=== PATIENT | male | born 1950 | race Hispanic/Latino ===

== ENCOUNTER 2017-11-24 18:34 | Inpatient (IN) | payer OTHER ==
[~2017-11-24] VITALS: Ht 121.9 cm; Wt 63.0 kg
[2017-11-24] MEDS ORDERED: IPRATROPIUM/ALBUTEROL SULFATE 3 ML SOLUTION IH ONE (19:50)
[2017-11-24] MEDS ORDERED: DEXAMETHASONE SOD PHOSPHATE 10MG/ML 1ML VIAL ONE (19:58)
[2017-11-24] MEDS ORDERED: CEFTRIAXONE SODIUM 2 GM VIAL ONE (19:58)
[2017-11-24] MEDS ORDERED: SODIUM CHLORIDE 0.9% 1000ML 1,000 ML IV ONE ×2 (19:58→23:25)
[2017-11-24 20:07] LABS: BASOPHILS % (AUTO) 1.6 % (0.0-5.0); EOSINOPHILS % (AUTO) 14.2 % (0.0-8.0); HEMATOCRIT 36.4 % (42-54); LYMPHOCYTES % (AUTO) 20.9 % (21.0-51.0); MEAN CORPUSCULAR HEMOGLOBIN 28.6 pg (27.0-33.0); MEAN CORPUSCULAR HGB CONC 33.6 g/dL (32.0-36.0); MEAN CORPUSCULAR VOLUME 85.1 fL (79-99); MONOCYTES % (AUTO) 6.1 % (3.0-13.0); NEUTROPHILS % (AUTO) 57.2 % (40.0-77.0); RED BLOOD CELL COUNT(AUTO) 4.28 MIL/uL (4.50-6.20); RED CELL DISTRIBUTION WIDTH 16.6 % (11.0-15.5); WHITE BLOOD COUNT (AUTO) 14.6 K/uL (4.8-10.8)
[2017-11-24 20:09] LABS: PLATELET COUNT (AUTO) 729 K/uL (130-400)
[2017-11-24 20:22] LABS: POTASSIUM 4.6 mmol/L (3.5-5.1)
[2017-11-24 20:22] LABS: ABG HCO3 23.3 mmol/L (21.0-28.0); ABG PCO2 38 mmHg (35-48)
[2017-11-24 20:36] LABS: ALBUMIN 3.1 g/dL (3.5-5.0); BILIRUBIN,TOTAL 0.2 mg/dL (0.2-1.0); CREATINE KINASE MB 1.6 ng/mL (0.5-3.6); TOTAL PROTEIN, SERUM 7.1 g/dL (6.0-8.3)
[2017-11-24 20:48] LABS: PLATELET MORPHOLOGY COMMENT MARKED INCREASED
[2017-11-24] MEDS ORDERED: LEVOFLOXACIN 500 MG/D5W 100 ML 100 ML ONE (23:25)
[2017-11-25] MEDS ORDERED: HYDRALAZINE HCL 20 MG/ML VIAL IM PRN (00:45)
[2017-11-25] MEDS ORDERED: AZITHROMYCIN 500MG+NS 250ML 250 ML IV SCH (01:00)
[2017-11-25] MEDS: ALBUTEROL SULFATE 0.083% 2.5 MG/3 ML INH IH SCH ×4 (02:35→13:30)
[2017-11-25] MEDS ORDERED: SODIUM CHLORIDE 0.9% 1000ML 1,000 ML IV ONE (04:21)
[2017-11-25] MEDS ORDERED: METHYLPREDNISOLONE SOD SUCC 40MG/ML 1ML ONE (04:56)
[2017-11-25 05:25] LABS: BASOPHILS % (AUTO) 0.6 % (0.0-5.0); EOSINOPHILS % (AUTO) 0.3 % (0.0-8.0); HEMATOCRIT 34.5 % (42-54); LYMPHOCYTES % (AUTO) 11.7 % (21.0-51.0); MEAN CORPUSCULAR HEMOGLOBIN 29.2 pg (27.0-33.0); MEAN CORPUSCULAR VOLUME 85.7 fL (79-99); NEUTROPHILS % (AUTO) 86.4 % (40.0-77.0); PLATELET COUNT (AUTO) 634 K/uL (130-400); RED BLOOD CELL COUNT(AUTO) 4.03 MIL/uL (4.50-6.20); RED CELL DISTRIBUTION WIDTH 16.9 % (11.0-15.5); WHITE BLOOD COUNT (AUTO) 9.7 K/uL (4.8-10.8)
[2017-11-25 05:33] LABS: CREATININE 1.1 mg/dL (0.5-1.5); POTASSIUM 5.1 mmol/L (3.5-5.1)
[2017-11-25] MEDS: IPRATROPIUM 0.5 MG/2.5 ML INH IH SCH ×2 (06:23→13:30)
[2017-11-25 07:55] VITALS: BP 146/82
[2017-11-25] MEDS ORDERED: INSULIN HUMULIN R 100 UNIT/ML 3ML ONE (09:24)
[2017-11-25] MEDS ORDERED: ACETAMINOPHEN 325 MG TAB ONE (09:39)
[2017-11-25] MEDS ORDERED: GABA-533 PO (09:45)
[2017-11-25] MEDS ORDERED: VITA1CAP85 PO (09:45)
[2017-11-25] MEDS ORDERED: GLIP10TA9 PO (09:45)
[2017-11-25] MEDS ORDERED: OMEP20CA10 PO (09:45)
[2017-11-25] MEDS ORDERED: ASPI-1197 PO (09:45)
[2017-11-25] MEDS ORDERED: CETI10TA86 PO (09:45)
[2017-11-25] MEDS ORDERED: DONE10TA43 PO (09:45)
[2017-11-25] MEDS ORDERED: DOCU100C33 PO (09:45)
[2017-11-25] MEDS ORDERED: AMLO10TA2 PO (09:45)
[2017-11-25] MEDS ORDERED: ATOR10 PO (09:45)
[2017-11-25] MEDS ORDERED: INSU100V12 SQ (09:45)
[2017-11-25] MEDS ORDERED: FOLI1TAB15 PO (09:45)
[2017-11-25] MEDS ORDERED: CARB15DR87 OP (09:45)
[2017-11-25] MEDS ORDERED: FERR324T8 PO (09:45)
[2017-11-25] MEDS ORDERED: LEVO137T2 PO (09:45)
[2017-11-25] MEDS ORDERED: LOSA100T29 PO (09:45)
[2017-11-25] MEDS ORDERED: ALBU2.5V2 IH (09:45)
[2017-11-25] MEDS ORDERED: ACET-66 PO (09:45)
[2017-11-25] MEDS ORDERED: MECL12.585 PO (09:45)
[2017-11-25] MEDS ORDERED: ERGO500014 PO (09:45)
[2017-11-25] MEDS ORDERED: IBUP-2353 PO (09:45)
[2017-11-25] MEDS ORDERED: METO50TA18 PO (09:45)
[2017-11-25] MEDS ORDERED: TIOT4MIS5 IH (09:45)
[2017-11-25] MEDS ORDERED: GUAI400T79 PO (09:45)
[2017-11-25] MEDS ORDERED: METF10004 PO (09:45)
[2017-11-25] MEDS ORDERED: CEFTRIAXONE 1GM/D5W 50ML 50 ML IV SCH (10:00)
[2017-11-25] MEDS ORDERED: CEFTRIAXONE SODIUM 1 GM IVP SCH (10:30)
[2017-11-25] MEDS ORDERED: ENOXAPARIN SODIUM 40 MG/0.4 ML SYRINGE SQ ONE (12:32)
[2017-11-25 13:00] VITALS: BP 163/74
[2017-11-25 15:00] VITALS: BP 163/74
[2017-11-25] MEDS ORDERED: ACETAMINOPHEN 325 MG TAB PO PRN ×2 (15:45)
[2017-11-25] MEDS ORDERED: ONDANSETRON HCL MDV 20ML 2 MG/ML VIAL IVP PRN (15:45)
[2017-11-25] MEDS ORDERED: POTASSIUM CHLORIDE 10% ELIXIR 20 MEQ/15 ML UDCUP PO PRN (15:45)
[2017-11-25] MEDS ORDERED: LIDOCAINE HCL-MPF 1% 2ML VIAL IJ PRN (15:45)
[2017-11-25] MEDS ORDERED: DEXTROSE 50%-WATER 50 ML DISP.SYRIN IV PRN (15:45)
[2017-11-25] MEDS ORDERED: GLUCAGON 1MG KIT 1 MG ML IM PRN (15:45)
[2017-11-25] MEDS ORDERED: POTASSIUM CHLORIDE 20MEQ/100ML 100 ML IV PRN (15:45)
[2017-11-25] MEDS ORDERED: POTASSIUM CHLORIDE 20 MEQ ERTAB PO PRN (15:45)
[2017-11-25] MEDS: INSULIN R PO SSI SQ SCH ×2 (16:30→22:02)
[2017-11-25] MEDS: IPRATROPIUM/ALBUTEROL SULFATE 3 ML SOLUTION IH SCH ×2 (19:18→23:48)
[2017-11-25 19:45] VITALS: BP 152/77
[2017-11-25] MEDS: METHYLPREDNISOLONE SOD SUCC 40MG/ML 1ML IVP SCH (21:46)
[2017-11-25] MEDS: LEVOFLOXACIN 500 MG/D5W 100 ML 100 ML IV SCH (21:47)
[2017-11-25] MEDS: SODIUM CHLORIDE 0.9% 1000ML 1,000 ML IV SCH (21:47)
[2017-11-25] MEDS: GUAIFENESIN SUGAR-FREE 100 MG/5 ML UDCUP PO PRN (22:00)
[2017-11-26 00:25] VITALS: BP 170/70
[2017-11-26 05:00] VITALS: BP 150/73
[2017-11-26] MEDS: METHYLPREDNISOLONE SOD SUCC 40MG/ML 1ML IVP SCH ×3 (05:03→20:38)
[2017-11-26] MEDS: INSULIN R PO SSI SQ SCH ×4 (05:53→20:36)
[2017-11-26] MEDS: ALBUTEROL SULFATE 0.083% 2.5 MG/3 ML INH IH SCH ×5 (06:00→22:00)
[2017-11-26 06:03] LABS: HEMATOCRIT 32.4 % (42-54); MEAN CORPUSCULAR HEMOGLOBIN 28.4 pg (27.0-33.0); MEAN CORPUSCULAR HGB CONC 33.3 g/dL (32.0-36.0); MEAN CORPUSCULAR VOLUME 85.1 fL (79-99); PLATELET COUNT (AUTO) 674 K/uL (130-400); RED CELL DISTRIBUTION WIDTH 16.8 % (11.0-15.5)
[2017-11-26 06:16] LABS: CREATININE 1.1 mg/dL (0.5-1.5); POTASSIUM 4.4 mmol/L (3.5-5.1)
[2017-11-26] MEDS: IPRATROPIUM/ALBUTEROL SULFATE 3 ML SOLUTION IH SCH ×3 (06:35→19:10)
[2017-11-26 07:58] VITALS: BP 135/76
[2017-11-26 08:14] LABS: BAND NEUTROPHILS % (MANUAL) 1 % (0-2); LYMPHOCYTES % (MANUAL) 6 % (22-44); MONOCYTES % (MANUAL) 3 % (2-9); SEGMENTED NEUTROPHILS % 90 % (40-70)
[2017-11-26 08:19] LABS: MAN.DIFF COMMENT-IMPRESSION MANUAL DIFFERENTIAL; PLATELET MORPHOLOGY COMMENT MARKED INCREASED
[2017-11-26] MEDS ORDERED: INSULIN GLARGINE 100 UNITS/ML 10 ML VIAL SQ ONE (08:59)
[2017-11-26] MEDS ORDERED: INSULIN GLARGINE 100 UNITS/ML 10 ML VIAL SQ SCH (09:00)
[2017-11-26] MEDS: PANTOPRAZOLE 40 MG/VIAL IVP SCH (09:00)
[2017-11-26] MEDS: INSULIN GLARGINE 100 UNITS/ML 10 ML VIAL SQ SCH (09:08)
[2017-11-26] MEDS: ENOXAPARIN SODIUM 40 MG/0.4 ML SYRINGE SQ SCH (09:11)
[2017-11-26] MEDS: SODIUM CHLORIDE 0.9% 1000ML 1,000 ML IV SCH ×2 (09:15→20:36)
[2017-11-26] MEDS: GUAIFENESIN SUGAR-FREE 100 MG/5 ML UDCUP PO PRN ×2 (11:46→18:00)
[2017-11-26 12:00] VITALS: BP 167/78
[2017-11-26] MEDS ORDERED: INSULIN HUMULIN R 100 UNIT/ML 3ML SQ ONE (12:21)
[2017-11-26 16:00] VITALS: BP 147/81
[2017-11-26 19:00] VITALS: BP 145/70
[2017-11-26] MEDS: LEVOFLOXACIN 500 MG/D5W 100 ML 100 ML IV SCH (20:38)
[2017-11-27] VITALS: BP 139/71
[2017-11-27] MEDS: ALBUTEROL SULFATE 0.083% 2.5 MG/3 ML INH IH SCH (00:25)
[2017-11-27] MEDS: IPRATROPIUM/ALBUTEROL SULFATE 3 ML SOLUTION IH SCH ×2 (00:25→06:17)
[2017-11-27] MEDS: GUAIFENESIN SUGAR-FREE 100 MG/5 ML UDCUP PO PRN (01:50)
[2017-11-27 04:00] VITALS: BP 150/79
[2017-11-27] MEDS: METHYLPREDNISOLONE SOD SUCC 40MG/ML 1ML IVP SCH ×2 (04:49→12:17)
[2017-11-27 04:53] LABS: BASOPHILS % (AUTO) 0.1 % (0.0-5.0); HEMATOCRIT 29.4 % (42-54); LYMPHOCYTES % (AUTO) 8.4 % (21.0-51.0); MEAN CORPUSCULAR HGB CONC 35.1 g/dL (32.0-36.0); MEAN CORPUSCULAR VOLUME 85.5 fL (79-99); MONOCYTES % (AUTO) 4.4 % (3.0-13.0); NEUTROPHILS % (AUTO) 87.1 % (40.0-77.0); PLATELET COUNT (AUTO) 581 K/uL (130-400); RED BLOOD CELL COUNT(AUTO) 3.44 MIL/uL (4.50-6.20); WHITE BLOOD COUNT (AUTO) 11.6 K/uL (4.8-10.8)
[2017-11-27 05:23] LABS: CREATININE 1.2 mg/dL (0.5-1.5); POTASSIUM 4.7 mmol/L (3.5-5.1)
[2017-11-27] MEDS: INSULIN R PO SSI SQ SCH ×2 (06:39→12:18)
[2017-11-27 08:00] VITALS: BP 165/77
[2017-11-27] MEDS: ENOXAPARIN SODIUM 40 MG/0.4 ML SYRINGE SQ SCH (08:08)
[2017-11-27] MEDS: PANTOPRAZOLE 40 MG/VIAL IVP SCH (08:08)
[2017-11-27] MEDS: INSULIN GLARGINE 100 UNITS/ML 10 ML VIAL SQ SCH (08:10)
[2017-11-27 10:09] LABS: ABG BASE EXCESS -3.1 mmol/L (-2.0-3.0); ABG HCO3 19.7 mmol/L (21.0-28.0); ABG PCO2 30 mmHg (35-48)
[2017-11-27 10:13] LABS: ABG BASE EXCESS -1.3 mmol/L (-2.0-3.0); ABG HCO3 21.6 mmol/L (21.0-28.0); ABG OXYGEN SATURATION 98.8 % (95.0-99.0); ABG PCO2 31 mmHg (35-48)
[2017-11-27] MEDS: SODIUM CHLORIDE 0.9% 1000ML 1,000 ML IV SCH (10:15)
[2017-11-27 12:00] VITALS: BP 144/68
[2017-11-27] MEDS ORDERED: LEVO750T46 PO (12:56)
[2017-11-27] MEDS ORDERED: LEVO500T89 PO (13:09)
== END 2017-11-27 13:30 | disposition home or self-care (01) | DRG 193 ==
LOC: EDH 18:34 → EDHIP 23:02 → 4BH 11-25 14:24
PROVIDERS: ADMIT Internal Medicine Nephrology; ATTEND Internal Medicine Nephrology
DX: J18.1 Lobar pneumonia, unspecified organism (principal); J96.01 Acute respiratory failure with hypoxia; J44.1 Chronic obstructive pulmonary disease with (acute) exacerbation; J44.0 Chronic obstructive pulmonary disease with (acute) lower respiratory infection; E11.51 Type 2 diabetes mellitus with diabetic peripheral angiopathy without gangrene; E07.9 Disorder of thyroid, unspecified; F17.210 Nicotine dependence, cigarettes, uncomplicated; I10 Essential (primary) hypertension; I25.10 Atherosclerotic heart disease of native coronary artery without angina pectoris; Z89.612 Acquired absence of left leg above knee; Z82.49 Family history of ischemic heart disease and other diseases of the circulatory system; Z82.5 Family history of asthma and other chronic lower respiratory diseases; Z89.611 Acquired absence of right leg above knee; Z79.4 Long term (current) use of insulin; Z79.84 Long term (current) use of oral hypoglycemic drugs; Z88.8 Allergy status to other drugs, medicaments and biological substances
CPT/HCPCS: 36415; 36600; 71045; 71250; 80048; 80053; 82550; 82553; 82803; 82947; 82948; 83605; 83880; 84484; 85025; 87040; 87633; 87804; 93005; 94640; 94664; 99291; C9113; J0696; J1100; J1650; J1815; J1956; J2920; J7030; J7070

== ENCOUNTER 2017-12-27 10:28 | Inpatient (IN) | payer OTHER ==
[~2017-12-27] VITALS: Ht 99.1 cm; Wt 45.2 kg
[~2017-12-27 10:28] MED LIST: ACET-66 PO; ALBU2.5V2 IH; AMLO10TA2 PO; ASPI-1197 PO; ATOR10 PO; CARB15DR87 OP; CETI10TA86 PO; DOCU100C33 PO; DONE10TA43 PO; ERGO500014 PO; FERR324T8 PO; FOLI1TAB15 PO; GABA-533 PO; GLIP10TA9 PO; GUAI400T79 PO; IBUP-2353 PO; INSU100V12 SQ; LEVO137T2 PO; LEVO500T89 PO; LOSA100T29 PO; MECL12.585 PO; METF10004 PO; METO50TA18 PO; OMEP20CA10 PO; TIOT4MIS5 IH; VITA1CAP85 PO
[2017-12-27] MEDS ORDERED: IPRATROPIUM/ALBUTEROL SULFATE 3 ML SOLUTION IH ONE (11:12)
[2017-12-27] MEDS ORDERED: ACETAMINOPHEN 325 MG TAB ONE (11:12)
[2017-12-27 11:19] LABS: BASOPHILS % (AUTO) 1.1 % (0.0-5.0); EOSINOPHILS % (AUTO) 11.4 % (0.0-8.0); HEMATOCRIT 35.4 % (42-54); LYMPHOCYTES % (AUTO) 22.5 % (21.0-51.0); MEAN CORPUSCULAR HEMOGLOBIN 28.6 pg (27.0-33.0); MEAN CORPUSCULAR HGB CONC 34.1 g/dL (32.0-36.0); MEAN CORPUSCULAR VOLUME 83.9 fL (79-99); MONOCYTES % (AUTO) 4.6 % (3.0-13.0); NEUTROPHILS % (AUTO) 60.4 % (40.0-77.0); RED BLOOD CELL COUNT(AUTO) 4.22 MIL/uL (4.50-6.20); RED CELL DISTRIBUTION WIDTH 16.9 % (11.0-15.5); WHITE BLOOD COUNT (AUTO) 11.6 K/uL (4.8-10.8)
[2017-12-27 11:34] LABS: INR 0.99 (0.85-1.15); PARTIAL THROMBOPLASTIN TIME 39.7 SEC (26.3-35.5); PLATELET COUNT (AUTO) 713 K/uL (130-400); PROTHROMBIN TIME 10.4 SEC (9.6-11.6)
[2017-12-27 11:35] LABS: ABG BASE EXCESS 0.4 mmol/L (-2.0-3.0); ABG HCO3 24.5 mmol/L (21.0-28.0); ABG OXYGEN SATURATION 92.5 % (95.0-99.0); ABG PCO2 38 mmHg (35-48)
[2017-12-27 11:38] LABS: CREATININE 0.9 mg/dL (0.5-1.5); POTASSIUM 4.2 mmol/L (3.5-5.1)
[2017-12-27 11:43] LABS: ALBUMIN 2.9 g/dL (3.5-5.0); BILIRUBIN,TOTAL 0.2 mg/dL (0.2-1.0); TOTAL PROTEIN, SERUM 7.2 g/dL (6.0-8.3)
[2017-12-27] MEDS ORDERED: SODIUM CHLORIDE 0.9% 500ML 500 ML IV ONE (12:29)
[2017-12-27] MEDS ORDERED: ONDANSETRON HCL MDV 20ML 2 MG/ML VIAL IV PRN (14:00)
[2017-12-27] MEDS: METHYLPREDNISOLONE SOD SUCC 125MG/2ML VIAL IV SCH (14:00)
[2017-12-27] MEDS: LEVOFLOXACIN 500 MG/D5W 100 ML 100 ML IV SCH (14:00)
[2017-12-27] MEDS ORDERED: ACETAMINOPHEN 325 MG TAB PO PRN (14:00)
[2017-12-27] MEDS ORDERED: HYDRALAZINE HCL 20 MG/ML VIAL IV PRN (14:00)
[2017-12-27] MEDS ORDERED: LACTULOSE 20 GM/30 ML UDCUP PO PRN (14:00)
[2017-12-27] MEDS ORDERED: GUAIFENESIN-DM 200/20 MG 10 ML PO PRN (14:00)
[2017-12-27] MEDS ORDERED: MORPHINE SULFATE 4 MG/1ML SYG IV PRN (14:00)
[2017-12-27] MEDS ORDERED: LEVOFLOXACIN 500 MG/D5W 100 ML 100 ML ONE (16:01)
[2017-12-27] MEDS: INSULIN HUMULIN R 100 UNIT/ML 3ML SQ SCH ×2 (16:30→20:24)
[2017-12-27 19:20] VITALS: BP 161/93
[2017-12-27] MEDS: IPRATROPIUM/ALBUTEROL SULFATE 3 ML SOLUTION IH SCH ×2 (22:15→23:43)
[2017-12-27 22:23] LABS: CREATINE KINASE MB 1.5 ng/mL (0.5-3.6); TROPONIN I 0.09 ng/mL (0.00-0.06)
[2017-12-27 23:00] VITALS: BP 157/89
[2017-12-28 03:00] VITALS: BP 151/79
[2017-12-28] MEDS: METHYLPREDNISOLONE SOD SUCC 125MG/2ML VIAL IV SCH (03:12)
[2017-12-28 04:38] LABS: HEMATOCRIT 30.6 % (42-54); MEAN CORPUSCULAR HEMOGLOBIN 28.3 pg (27.0-33.0); MEAN CORPUSCULAR HGB CONC 34.2 g/dL (32.0-36.0); MEAN CORPUSCULAR VOLUME 82.9 fL (79-99); PLATELET COUNT (AUTO) 625 K/uL (130-400); RED BLOOD CELL COUNT(AUTO) 3.69 MIL/uL (4.50-6.20); RED CELL DISTRIBUTION WIDTH 17.1 % (11.0-15.5); WHITE BLOOD COUNT (AUTO) 17.7 K/uL (4.8-10.8)
[2017-12-28 05:03] LABS: CREATINE KINASE MB 1.2 ng/mL (0.5-3.6); CREATININE 0.8 mg/dL (0.5-1.5); MAGNESIUM 1.1 mg/dL (1.80-2.40); POTASSIUM 3.8 mmol/L (3.5-5.1); TROPONIN I 0.11 ng/mL (0.00-0.06)
[2017-12-28] MEDS: INSULIN HUMULIN R 100 UNIT/ML 3ML SQ SCH ×4 (05:32→20:56)
[2017-12-28] MEDS: IPRATROPIUM/ALBUTEROL SULFATE 3 ML SOLUTION IH SCH ×4 (06:37→23:56)
[2017-12-28 07:58] VITALS: BP 145/82
[2017-12-28] MEDS: PANTOPRAZOLE SODIUM 40 MG TABLET.DR PO SCH (09:55)
[2017-12-28] MEDS: ENOXAPARIN SODIUM 40 MG/0.4 ML SYRINGE SQ SCH (09:56)
[2017-12-28] MEDS ORDERED: MAGNESIUM 2GM PREMIX 50ML 50 ML IV SCH (10:15)
[2017-12-28] MEDS ORDERED: IBUPROFEN 400 MG TABLET PO PRN (10:30)
[2017-12-28 11:39] VITALS: BP 131/69
[2017-12-28] MEDS: GABAPENTIN 100 MG CAPSULE PO SCH ×3 (12:36→20:18)
[2017-12-28] MEDS: ARTIFICAL TEARS SOL 15 ML OP SCH ×3 (12:36→20:58)
[2017-12-28] MEDS: FERROUS GLUCONATE 325 MG TABLET PO SCH ×2 (12:36→16:33)
[2017-12-28 16:00] VITALS: BP 134/65
[2017-12-28] MEDS: LEVOFLOXACIN 500 MG/D5W 100 ML 100 ML IV SCH (16:36)
[2017-12-28] MEDS: METFORMIN HCL 500 MG TABLET PO SCH (16:46)
[2017-12-28] MEDS ORDERED: METFORMIN HCL 500 MG TABLET PO SCH (17:00)
[2017-12-28 19:50] VITALS: BP 123/65
[2017-12-28] MEDS: METOPROLOL TARTRATE 50 MG TAB PO SCH (20:18)
[2017-12-28] MEDS: GLIPIZIDE 5 MG TABLET PO SCH (20:21)
[2017-12-28] MEDS ORDERED: ATORVASTATIN CALCIUM 20 MG TABLET PO SCH (21:00)
[2017-12-28 23:00] VITALS: BP 133/62
[2017-12-29 03:05] VITALS: BP 131/72
[2017-12-29 04:41] LABS: HEMATOCRIT 29.5 % (42-54); MEAN CORPUSCULAR HEMOGLOBIN 27.8 pg (27.0-33.0); MEAN CORPUSCULAR HGB CONC 33.4 g/dL (32.0-36.0); MEAN CORPUSCULAR VOLUME 83.3 fL (79-99); PLATELET COUNT (AUTO) 578 K/uL (130-400); RED BLOOD CELL COUNT(AUTO) 3.55 MIL/uL (4.50-6.20); RED CELL DISTRIBUTION WIDTH 16.6 % (11.0-15.5); WHITE BLOOD COUNT (AUTO) 14.7 K/uL (4.8-10.8)
[2017-12-29 04:52] LABS: CREATININE 1.8 mg/dL (0.5-1.5); MAGNESIUM 1.9 mg/dL (1.80-2.40); POTASSIUM 3.9 mmol/L (3.5-5.1)
[2017-12-29] MEDS: IPRATROPIUM/ALBUTEROL SULFATE 3 ML SOLUTION IH SCH ×2 (06:12→11:23)
[2017-12-29] MEDS: INSULIN HUMULIN R 100 UNIT/ML 3ML SQ SCH ×2 (06:18→11:30)
[2017-12-29 08:28] VITALS: BP 123/56
[2017-12-29] MEDS: GLIPIZIDE 5 MG TABLET PO SCH (08:55)
[2017-12-29] MEDS: GABAPENTIN 100 MG CAPSULE PO SCH ×2 (08:55→13:42)
[2017-12-29] MEDS: FERROUS GLUCONATE 325 MG TABLET PO SCH ×2 (08:56→13:42)
[2017-12-29] MEDS: METOPROLOL TARTRATE 50 MG TAB PO SCH (08:57)
[2017-12-29] MEDS: METFORMIN HCL 500 MG TABLET PO SCH (08:57)
[2017-12-29] MEDS: PANTOPRAZOLE SODIUM 40 MG TABLET.DR PO SCH (08:57)
[2017-12-29] MEDS: ENOXAPARIN SODIUM 40 MG/0.4 ML SYRINGE SQ SCH (08:58)
[2017-12-29] MEDS ORDERED: FOLIC ACID 1 MG TABLET PO SCH (09:00)
[2017-12-29] MEDS ORDERED: INSULIN GLARGINE 100 UNITS/ML 10 ML VIAL SQ SCH (09:00)
[2017-12-29] MEDS ORDERED: LEVOTHYROXINE 25 MCG TABLET PO SCH (09:00)
[2017-12-29] MEDS ORDERED: VITAMIN B COMPLEX 1 CAPSULE PO SCH (09:00)
[2017-12-29] MEDS ORDERED: ASPIRIN 81MG TAB.CHEW PO SCH (09:00)
[2017-12-29] MEDS ORDERED: LOSARTAN 50 MG TABLET PO SCH (09:00)
[2017-12-29] MEDS ORDERED: LEVOTHYROXINE 112 MCG TABLET PO SCH (09:00)
[2017-12-29] MEDS ORDERED: AMLODIPINE BESYLATE 5 MG TAB PO SCH (09:00)
[2017-12-29] MEDS ORDERED: DONEPEZIL HCL 5 MG TAB PO SCH (09:00)
[2017-12-29] MEDS: ARTIFICAL TEARS SOL 15 ML OP SCH ×2 (09:13→13:00)
[2017-12-29] MEDS ORDERED: SODIUM CHLORIDE 0.9% 1000ML 1,000 ML IV ONE (09:45)
[2017-12-29 11:55] VITALS: BP 134/61
[2017-12-29 13:30] LABS: CREATININE 1.5 mg/dL (0.5-1.5); POTASSIUM 3.8 mmol/L (3.5-5.1)
[2017-12-29] MEDS: LEVOFLOXACIN 500 MG/D5W 100 ML 100 ML IV SCH (13:42)
[2017-12-29] MEDS ORDERED: LEVO250T2 PO (14:37)
== END 2017-12-29 16:10 | disposition home or self-care (01) | DRG 191 ==
LOC: EDH 10:28 → EDHIP 13:47 → OBSVTOIN 13:47 → 3CH 18:29
PROVIDERS: ADMIT Internal Medicine Nephrology; ATTEND Internal Medicine Nephrology
DX: J44.1 Chronic obstructive pulmonary disease with (acute) exacerbation (principal); E44.1 Mild protein-calorie malnutrition; Z89.611 Acquired absence of right leg above knee; Z89.612 Acquired absence of left leg above knee; Z68.42 Body mass index [BMI] 45.0-49.9, adult; E11.9 Type 2 diabetes mellitus without complications; J44.0 Chronic obstructive pulmonary disease with (acute) lower respiratory infection; I10 Essential (primary) hypertension; F17.210 Nicotine dependence, cigarettes, uncomplicated; I25.10 Atherosclerotic heart disease of native coronary artery without angina pectoris; J20.9 Acute bronchitis, unspecified; Z82.49 Family history of ischemic heart disease and other diseases of the circulatory system; Z83.3 Family history of diabetes mellitus; Z88.8 Allergy status to other drugs, medicaments and biological substances
CPT/HCPCS: 36415; 36600; 71045; 80048; 80053; 82550; 82553; 82803; 82948; 83605; 83735; 83874; 84484; 85025; 85027; 85610; 85730; 87040; 87633; 87804; 93005; 94640; 94664; J1650; J1815; J1956; J2270; J2930; J3475; J7040

== ENCOUNTER 2020-08-25 16:19 | Inpatient (IN) | payer OTHER ==
[~2020-08-25] VITALS: Ht 152.4 cm; Wt 41.6 kg
[~2020-08-25 16:19] MED LIST changes: -ACET-66 PO; -ALBU2.5V2 IH; +ALBU8.5H8 IH; +AMLO-258 PO; -AMLO10TA2 PO; +ASPI1CPM6 PO; +BUDE10.2 IH; +GUAI100S13 PO; -GUAI400T79 PO; -IBUP-2353 PO; -INSU100V12 SQ; +IPRA3AMP24 IH; -LEVO500T89 PO; -LOSA100T29 PO; +LOSA100T58 PO; -MECL12.585 PO; +METF-446 PO; -METF10004 PO; +MULT1TAB61 PO; -OMEP20CA10 PO; +OMEP20CA12 PO; +POLY17PO29 PO; +[UNRECOGNIZED DRUG - CODE] NS
[2020-08-25 17:34] LABS: BASOPHILS % (AUTO) 0.3 % (0.0-5.0); EOSINOPHILS % (AUTO) 0.6 % (0.0-8.0); HEMATOCRIT 26.3 % (42-54); LYMPHOCYTES % (AUTO) 10.4 % (21.0-51.0); MEAN CORPUSCULAR HEMOGLOBIN 27.4 pg (27.0-33.0); MEAN CORPUSCULAR HGB CONC 31.9 g/dL (32.0-36.0); MEAN CORPUSCULAR VOLUME 85.7 fL (79-99); MONOCYTES % (AUTO) 3.7 % (3.0-13.0); NEUTROPHILS % (AUTO) 84.7 % (40.0-77.0); NUCLEATED RED BLOOD CELLS 0.2 % (0.0-0.19); RED BLOOD CELL COUNT(AUTO) 3.07 MIL/uL (4.50-6.20); WHITE BLOOD COUNT (AUTO) 12.2 K/uL (4.8-10.8)
[2020-08-25 17:36] LABS: PLATELET COUNT (AUTO) 739 K/uL (130-400)
[2020-08-25 17:42] LABS: INR 1.07 (0.85-1.15); PROTHROMBIN TIME 11.4 SEC (9.6-11.6)
[2020-08-25 17:43] LABS: ABG BASE EXCESS -7.1 mmol/L (-2.0-3.0); ABG HCO3 16.2 mmol/L (21.0-28.0); ABG OXYGEN SATURATION 86.1 % (95.0-99.0); ABG PCO2 28 mmHg (35-48)
[2020-08-25 17:44] LABS: PARTIAL THROMBOPLASTIN TIME 37.4 SEC (26.3-35.5)
[2020-08-25 17:50] LABS: APPEARANCE,URINE Cloudy (CLEAR); BILIRUBIN,URINE Negative (NEGATIVE); COLOR,URINE Yellow (YELLOW); GLUCOSE, URINE (UA) TRACE mg/dL (NEGATIVE); KETONES,URINE Negative (NEGATIVE); LEUKOCYTE ESTERASE ,URINE Trace (NEGATIVE); NITRATE,URINE Negative (NEGATIVE); OCCULT BLOOD,URINE Negative (NEGATIVE); PROTEIN,URINE 300 mg/dL (NEGATIVE)
[2020-08-25 17:53] LABS: PLATELET MORPHOLOGY COMMENT INCREASED
[2020-08-25 18:02] LABS: ALBUMIN 2.7 g/dL (3.5-5.0); BILIRUBIN,TOTAL 0.2 mg/dL (0.2-1.0); CREATININE 1.7 mg/dL (0.5-1.5); POTASSIUM 4.1 mmol/L (3.5-5.1); TOTAL PROTEIN, SERUM 7.4 g/dL (6.0-8.3); TROPONIN I 0.5 ng/mL (0.00-0.06)
[2020-08-25] MEDS ORDERED: FUROSEMIDE 10 MG/ML 4ML VIAL ONE ×3 (18:34→22:43)
[2020-08-25 18:39] LABS: BACTERIA,URINE Few /HPF (None Seen); RBC,URINE 0-1 /HPF (0-1); SQUAMOUS EPITHELIAL CELL,UR Few /HPF (0-2)
[2020-08-25] MEDS ORDERED: METHYLPREDNISOLONE SOD SUCC 125MG/2ML VIAL ONE (18:54)
[2020-08-25] MEDS ORDERED: IPRATROPIUM/ALBUTEROL SULFATE 3 ML SOLUTION IH ONE (19:13)
[2020-08-25] MEDS ORDERED: LEVOFLOXACIN 750 MG/D5W 150 ML 150 ML ONE (19:18)
[2020-08-25] MEDS ORDERED: CEFTRIAXONE SODIUM 1 GM ONE (19:18)
[2020-08-25] MEDS ORDERED: LEVOFLOXACIN 500 MG/D5W 100 ML 100 ML ONE (19:36)
[2020-08-25] MEDS ORDERED: NITROGLYCERIN 1GM/1 INCH PACKET TD ONE (19:37)
[2020-08-25] MEDS ORDERED: ONDANSETRON HCL 4 MG/2 ML VIAL IV PRN (20:15)
[2020-08-25] MEDS ORDERED: NITROGLYCERIN 0.4 MG SL TAB SL PRN (20:15)
[2020-08-25] MEDS ORDERED: ACETAMINOPHEN 325 MG TAB PO PRN ×2 (20:15)
[2020-08-25] MEDS ORDERED: FUROSEMIDE 10 MG/ML 4ML VIAL IVP SCH (21:00)
[2020-08-25 21:28] LABS: HEMOGLOBIN A1C 7.1 % (4.0-6.0)
[2020-08-25 21:43] LABS: CRP QUANTITATIVE 44.9 mg/L (0.00-9.0); MAGNESIUM 2.1 mg/dL (1.80-2.40)
[2020-08-25 21:45] LABS: % IRON SATURATION 8.7 % (30-44)
[2020-08-25] MEDS ORDERED: MORPHINE SULFATE 2 MG/ML 1ML SYG IVP ONE (21:45)
[2020-08-25 21:49] LABS: TROPONIN I 1.53 ng/mL (0.00-0.06)
[2020-08-25] MEDS: IPRATROPIUM/ALBUTEROL SULFATE 3 ML SOLUTION IH SCH (22:00)
[2020-08-25] MEDS ORDERED: ASPIRIN 81MG TAB.CHEW ONE (22:16)
[2020-08-25] MEDS ORDERED: MORPHINE SULFATE 2 MG/ML 1ML SYG ONE (22:18)
[2020-08-25] MEDS ORDERED: METOLAZONE 2.5 MG TABLET ONE ×2 (22:30→22:32)
[2020-08-25] MEDS ORDERED: METOPROLOL TARTRATE 25 MG TAB ONE (22:31)
[2020-08-25] MEDS ORDERED: ENOXAPARIN SODIUM 40 MG/0.4 ML SYRINGE SQ ONE (22:43)
[2020-08-25] MEDS ORDERED: METOPROLOL TARTRATE 25 MG TAB PO SCH (23:00)
[2020-08-25] MEDS ORDERED: HEPARIN SODIUM 5000UNIT/ML 1ML VIAL ONE (23:20)
[2020-08-26 06:41] LABS: HEMATOCRIT 23.3 % (42-54); MEAN CORPUSCULAR HEMOGLOBIN 27.5 pg (27.0-33.0); MEAN CORPUSCULAR HGB CONC 32.6 g/dL (32.0-36.0); MEAN CORPUSCULAR VOLUME 84.4 fL (79-99); NUCLEATED RED BLOOD CELLS 0.5 % (0.0-0.19); PLATELET COUNT (AUTO) 671 K/uL (130-400); RED BLOOD CELL COUNT(AUTO) 2.76 MIL/uL (4.50-6.20); RED CELL DISTRIBUTION WIDTH 15.9 % (11.0-15.5); WHITE BLOOD COUNT (AUTO) 13.2 K/uL (4.8-10.8)
[2020-08-26 07:21] LABS: EOSINOPHILS % (MANUAL) 1 % (1-6); LYMPHOCYTES % (MANUAL) 7 % (22-44); MAN.DIFF COMMENT-IMPRESSION MANUAL DIFFERENTIAL; MONOCYTES % (MANUAL) 2 % (2-9); PLATELET MORPHOLOGY COMMENT MARKED INCREASE; SEGMENTED NEUTROPHILS % 90 % (40-70)
[2020-08-26 07:28] LABS: ALBUMIN 2.5 g/dL (3.5-5.0); BILIRUBIN,TOTAL 0.2 mg/dL (0.2-1.0); TOTAL PROTEIN, SERUM 6.8 g/dL (6.0-8.3)
[2020-08-26 07:29] LABS: TROPONIN I 20.53 ng/mL (0.00-0.06)
[2020-08-26] MEDS: LEVOFLOXACIN 500 MG/D5W 100 ML 100 ML IV SCH (09:00)
[2020-08-26] MEDS: ASPIRIN 81 MG EC TAB PO SCH (09:00)
[2020-08-26] MEDS ORDERED: CARVEDILOL 6.25 MG TABLET PO SCH (09:00)
[2020-08-26] MEDS: ATORVASTATIN CALCIUM 40 MG TABLET PO SCH (09:00)
[2020-08-26] MEDS ORDERED: FAMOTIDINE 20MG TAB 20 MG TAB ONE ×2 (09:31→20:35)
[2020-08-26] MEDS ORDERED: ATORVASTATIN CALCIUM 40 MG TABLET ONE (09:32)
[2020-08-26] MEDS ORDERED: LEVOFLOXACIN 500 MG/D5W 100 ML 100 ML ONE (09:32)
[2020-08-26] MEDS ORDERED: CARVEDILOL 6.25 MG TABLET PO ONE (09:32)
[2020-08-26] MEDS ORDERED: FUROSEMIDE 10 MG/ML 4ML VIAL ONE ×2 (09:32→19:20)
[2020-08-26] MEDS ORDERED: ASPIRIN 81 MG EC TAB ONE (09:32)
[2020-08-26] MEDS ORDERED: HEPARIN SODIUM 5000UNIT/ML 1ML VIAL ONE ×3 (09:32→20:35)
[2020-08-26] MEDS ORDERED: ALBUTEROL INHALER 90MCG/INH IH SCH (10:00)
[2020-08-26 13:19] LABS: TROPONIN I 15.02 ng/mL (0.00-0.06)
[2020-08-26] MEDS ORDERED: MORPHINE SULFATE 2 MG/ML 1ML SYG ONE (16:47)
[2020-08-26] MEDS: FUROSEMIDE 10 MG/ML 4ML VIAL IVP SCH (17:00)
[2020-08-26] MEDS: FAMOTIDINE 20MG TAB 20 MG TAB PO SCH (21:00)
[2020-08-26] MEDS: INSULIN HUMULIN R 100 UNIT/ML 3ML SQ SCH (21:00)
[2020-08-26] MEDS: HEPARIN SODIUM 5000UNIT/ML 1ML VIAL SQ SCH (21:00)
[2020-08-27] VITALS (7 sets, daily range): BP systolic 137–158; BP diastolic 66–86
[2020-08-27] MEDS ORDERED: LEVO112C4 PO (02:00)
[2020-08-27] MEDS ORDERED: GABA800T9 PO (02:00)
[2020-08-27] MEDS ORDERED: HYDR25TA PO (02:00)
[2020-08-27] MEDS ORDERED: ERGO500014 PO (02:00)
[2020-08-27] MEDS ORDERED: PIOG30TA70 PO (02:00)
[2020-08-27] MEDS ORDERED: ROSU5TAB12 PO (02:00)
[2020-08-27] MEDS: INSULIN HUMULIN R 100 UNIT/ML 3ML SQ SCH ×4 (05:49→19:52)
[2020-08-27] MEDS: MORPHINE SULFATE 2 MG/ML 1ML SYG IVP PRN ×2 (05:58→08:05)
[2020-08-27 06:08] LABS: BASOPHILS % (AUTO) 0.1 % (0.0-5.0); HEMATOCRIT 23.3 % (42-54); LYMPHOCYTES % (AUTO) 5.7 % (21.0-51.0); MEAN CORPUSCULAR HEMOGLOBIN 27.5 pg (27.0-33.0); MEAN CORPUSCULAR HGB CONC 32.6 g/dL (32.0-36.0); MEAN CORPUSCULAR VOLUME 84.4 fL (79-99); MONOCYTES % (AUTO) 7.7 % (3.0-13.0); NEUTROPHILS % (AUTO) 86.1 % (40.0-77.0); NUCLEATED RED BLOOD CELLS 0.5 % (0.0-0.19); RED BLOOD CELL COUNT(AUTO) 2.76 MIL/uL (4.50-6.20); RED CELL DISTRIBUTION WIDTH 15.9 % (11.0-15.5); WHITE BLOOD COUNT (AUTO) 14.2 K/uL (4.8-10.8)
[2020-08-27 06:11] LABS: PLATELET COUNT (AUTO) 713 K/uL (130-400)
[2020-08-27 06:35] LABS: B-TYPE NATRIURETIC PEPTIDE 2850 pg/mL (0-100)
[2020-08-27 06:47] LABS: CREATININE 1.9 mg/dL (0.5-1.5); POTASSIUM 4.2 mmol/L (3.5-5.1)
[2020-08-27 06:56] LABS: TROPONIN I 7.14 ng/mL (0.00-0.06)
[2020-08-27] MEDS: ATORVASTATIN CALCIUM 40 MG TABLET PO SCH (07:54)
[2020-08-27] MEDS: LEVOFLOXACIN 500 MG/D5W 100 ML 100 ML IV SCH (07:54)
[2020-08-27] MEDS: ASPIRIN 81 MG EC TAB PO SCH (07:54)
[2020-08-27] MEDS: FUROSEMIDE 10 MG/ML 4ML VIAL IVP SCH (07:54)
[2020-08-27] MEDS: FAMOTIDINE 20MG TAB 20 MG TAB PO SCH ×2 (07:55→20:42)
[2020-08-27] MEDS: CARVEDILOL 6.25 MG TABLET PO SCH ×2 (08:06→20:43)
[2020-08-27] MEDS: HEPARIN SODIUM 5000UNIT/ML 1ML VIAL SQ SCH ×3 (08:21→20:55)
[2020-08-27] MEDS: IPRATROPIUM/ALBUTEROL SULFATE 3 ML SOLUTION IH SCH ×4 (11:30→22:29)
[2020-08-27] MEDS ORDERED: FUROSEMIDE 10 MG/ML 10ML VIAL ONE (16:11)
[2020-08-27] MEDS ORDERED: FUROSEMIDE 10 MG/ML 4ML VIAL IV SCH (16:15)
[2020-08-27] MEDS ORDERED: PHARMACY COMMUNICATION MISC STA (17:30)
[2020-08-27] MEDS: BUMETANIDE 0.25 MG/ML 80 ML IV SCH (20:43)
[2020-08-28] MEDS: MORPHINE SULFATE 2 MG/ML 1ML SYG IVP PRN (00:54)
[2020-08-28] MEDS: IPRATROPIUM/ALBUTEROL SULFATE 3 ML SOLUTION IH SCH ×6 (01:22→21:24)
[2020-08-28 04:00] VITALS: BP 159/80
[2020-08-28] MEDS: BUMETANIDE 0.25 MG/ML 80 ML IV SCH ×2 (04:37→12:51)
[2020-08-28] MEDS: INSULIN HUMULIN R 100 UNIT/ML 3ML SQ SCH ×4 (05:20→21:00)
[2020-08-28 05:59] LABS: BASOPHILS % (AUTO) 0.1 % (0.0-5.0); EOSINOPHILS % (AUTO) 0.2 % (0.0-8.0); HEMATOCRIT 22.8 % (42-54); LYMPHOCYTES % (AUTO) 9.3 % (21.0-51.0); MEAN CORPUSCULAR HGB CONC 33.8 g/dL (32.0-36.0); MEAN CORPUSCULAR VOLUME 82.9 fL (79-99); MONOCYTES % (AUTO) 7.3 % (3.0-13.0); NEUTROPHILS % (AUTO) 82.8 % (40.0-77.0); NUCLEATED RED BLOOD CELLS 0.3 % (0.0-0.19); RED BLOOD CELL COUNT(AUTO) 2.75 MIL/uL (4.50-6.20); RED CELL DISTRIBUTION WIDTH 15.5 % (11.0-15.5); WHITE BLOOD COUNT (AUTO) 11.9 K/uL (4.8-10.8)
[2020-08-28 06:05] LABS: PLATELET COUNT (AUTO) 708 K/uL (130-400)
[2020-08-28 06:10] LABS: CREATININE 1.8 mg/dL (0.5-1.5); POTASSIUM 3.1 mmol/L (3.5-5.1)
[2020-08-28 06:16] LABS: B-TYPE NATRIURETIC PEPTIDE 3980 pg/mL (0-100)
[2020-08-28] MEDS: POTASSIUM CHLORIDE 10% ELIXIR 20 MEQ/15 ML UDCUP PO PRN ×3 (06:26→12:09)
[2020-08-28 08:17] VITALS: BP 137/88
[2020-08-28 11:59] VITALS: BP 134/66
[2020-08-28] MEDS: LEVOFLOXACIN 500 MG/D5W 100 ML 100 ML IV SCH (11:59)
[2020-08-28] MEDS: ASPIRIN 81 MG EC TAB PO SCH (11:59)
[2020-08-28] MEDS: ISOSORBIDE MONO 30MG TAB SR PO SCH (12:00)
[2020-08-28] MEDS: CARVEDILOL 6.25 MG TABLET PO SCH ×2 (12:01→21:00)
[2020-08-28] MEDS: FAMOTIDINE 20MG TAB 20 MG TAB PO SCH ×2 (12:01→20:59)
[2020-08-28] MEDS: HEPARIN SODIUM 5000UNIT/ML 1ML VIAL SQ SCH ×3 (12:02→22:07)
[2020-08-28] MEDS: ATORVASTATIN CALCIUM 40 MG TABLET PO SCH (12:04)
[2020-08-28 16:14] VITALS: BP 138/75
[2020-08-28 19:07] VITALS: BP 147/72
[2020-08-28] MEDS: FUROSEMIDE 10 MG/ML 4ML VIAL IV SCH (19:30)
[2020-08-28 23:22] VITALS: BP 138/62
[2020-08-29] MEDS: IPRATROPIUM/ALBUTEROL SULFATE 3 ML SOLUTION IH SCH ×5 (02:04→23:09)
[2020-08-29] MEDS: FUROSEMIDE 10 MG/ML 4ML VIAL IV SCH ×4 (03:37→21:07)
[2020-08-29 03:48] VITALS: BP 120/54
[2020-08-29 05:56] LABS: CREATININE 1.9 mg/dL (0.5-1.5)
[2020-08-29 06:03] LABS: POTASSIUM 2.9 mmol/L (3.5-5.1)
[2020-08-29] MEDS: POTASSIUM CHLORIDE 10% ELIXIR 20 MEQ/15 ML UDCUP PO PRN (06:07)
[2020-08-29] MEDS: INSULIN HUMULIN R 100 UNIT/ML 3ML SQ SCH ×4 (06:11→21:00)
[2020-08-29] MEDS: POTASSIUM CHLORIDE 10MEQ/100ML 100 ML IV PRN (06:28)
[2020-08-29] MEDS: LIDOCAINE HCL-MPF 1% 2ML VIAL IV PRN (06:28)
[2020-08-29 08:00] VITALS: BP 126/64
[2020-08-29] MEDS: LEVOFLOXACIN 500 MG/D5W 100 ML 100 ML IV SCH (09:24)
[2020-08-29] MEDS: ATORVASTATIN CALCIUM 40 MG TABLET PO SCH (09:30)
[2020-08-29] MEDS: POTASSIUM CHLORIDE 20 MEQ ERTAB PO PRN ×3 (09:30→18:38)
[2020-08-29] MEDS: ASPIRIN 81 MG EC TAB PO SCH (09:31)
[2020-08-29] MEDS: ISOSORBIDE MONO 30MG TAB SR PO SCH (09:31)
[2020-08-29] MEDS: FAMOTIDINE 20MG TAB 20 MG TAB PO SCH ×2 (09:31→21:08)
[2020-08-29] MEDS: HYDRALAZINE HCL 10 MG TABLET PO SCH ×3 (09:31→21:08)
[2020-08-29] MEDS: CARVEDILOL 6.25 MG TABLET PO SCH ×2 (09:32→21:08)
[2020-08-29] MEDS: HEPARIN SODIUM 5000UNIT/ML 1ML VIAL SQ SCH ×2 (09:49→21:15)
[2020-08-29 12:00] VITALS: BP 118/61
[2020-08-29 16:00] VITALS: BP 120/62
[2020-08-29] MEDS ORDERED: IPRATROPIUM/ALBUTEROL SULFATE 3 ML SOLUTION IH ONE (18:02)
[2020-08-29 19:00] VITALS: BP 131/65
[2020-08-30] VITALS: BP 128/70
[2020-08-30 04:00] VITALS: BP 127/56
[2020-08-30 05:55] LABS: POTASSIUM 2.9 mmol/L (3.5-5.1)
[2020-08-30] MEDS: IPRATROPIUM/ALBUTEROL SULFATE 3 ML SOLUTION IH SCH ×3 (06:34→18:54)
[2020-08-30] MEDS: INSULIN HUMULIN R 100 UNIT/ML 3ML SQ SCH ×4 (06:37→23:08)
[2020-08-30 08:00] VITALS: BP 140/63
[2020-08-30] MEDS: ISOSORBIDE MONO 30MG TAB SR PO SCH (09:45)
[2020-08-30] MEDS: ATORVASTATIN CALCIUM 40 MG TABLET PO SCH (09:45)
[2020-08-30] MEDS: HYDRALAZINE HCL 10 MG TABLET PO SCH ×3 (09:46→22:16)
[2020-08-30] MEDS: ASPIRIN 81 MG EC TAB PO SCH (09:46)
[2020-08-30] MEDS: CARVEDILOL 6.25 MG TABLET PO SCH ×2 (09:46→22:15)
[2020-08-30] MEDS: FUROSEMIDE 40 MG TABLET PO SCH ×2 (09:46→17:18)
[2020-08-30] MEDS: FAMOTIDINE 20MG TAB 20 MG TAB PO SCH ×2 (09:46→22:15)
[2020-08-30] MEDS: POTASSIUM CHLORIDE 10% ELIXIR 20 MEQ/15 ML UDCUP PO PRN ×2 (09:47→14:59)
[2020-08-30] MEDS: LEVOFLOXACIN 500 MG/D5W 100 ML 100 ML IV SCH (09:47)
[2020-08-30] MEDS: HEPARIN SODIUM 5000UNIT/ML 1ML VIAL SQ SCH ×2 (09:57→23:07)
[2020-08-30 11:00] VITALS: BP 133/59
[2020-08-30 16:00] VITALS: BP 130/68
[2020-08-30] MEDS: POTASSIUM CHLORIDE 10MEQ/100ML 100 ML IV PRN (18:39)
[2020-08-30] MEDS: LIDOCAINE HCL-MPF 1% 2ML VIAL IV PRN (18:40)
[2020-08-30 20:25] VITALS: BP 143/67
[2020-08-30 21:52] LABS: MAGNESIUM 1.6 mg/dL (1.80-2.40); POTASSIUM 3.2 mmol/L (3.5-5.1)
[2020-08-30] MEDS: MIRTAZAPINE 15 MG TABLET PO SCH (22:14)
[2020-08-30] MEDS ORDERED: MAGNESIUM 2GM PREMIX 50ML 50 ML IV ONE (23:24)
[2020-08-30] MEDS ORDERED: MAGNESIUM 2GM PREMIX 50ML 50 ML IV PRN (23:30)
[2020-08-31] VITALS (7 sets, daily range): BP systolic 126–158; BP diastolic 57–71
[2020-08-31] MEDS: IPRATROPIUM/ALBUTEROL SULFATE 3 ML SOLUTION IH SCH ×4 (00:39→18:21)
[2020-08-31] MEDS: POTASSIUM CHLORIDE 10MEQ/100ML 100 ML IV PRN (03:35)
[2020-08-31 05:23] LABS: BASOPHILS % (AUTO) 0.1 % (0.0-5.0); EOSINOPHILS % (AUTO) 0.3 % (0.0-8.0); HEMATOCRIT 26.7 % (42-54); MEAN CORPUSCULAR HEMOGLOBIN 26.9 pg (27.0-33.0); MEAN CORPUSCULAR VOLUME 81.7 fL (79-99); NEUTROPHILS % (AUTO) 80.2 % (40.0-77.0); RED BLOOD CELL COUNT(AUTO) 3.27 MIL/uL (4.50-6.20); RED CELL DISTRIBUTION WIDTH 15.8 % (11.0-15.5); WHITE BLOOD COUNT (AUTO) 9.9 K/uL (4.8-10.8)
[2020-08-31 05:32] LABS: PLATELET COUNT (AUTO) 772 K/uL (130-400)
[2020-08-31 05:39] LABS: ALBUMIN 2.4 g/dL (3.5-5.0); BILIRUBIN,TOTAL 0.3 mg/dL (0.2-1.0); POTASSIUM 3.5 mmol/L (3.5-5.1); TOTAL PROTEIN, SERUM 6.4 g/dL (6.0-8.3)
[2020-08-31] MEDS: INSULIN HUMULIN R 100 UNIT/ML 3ML SQ SCH ×4 (06:42→21:00)
[2020-08-31] MEDS: CARVEDILOL 6.25 MG TABLET PO SCH ×2 (09:00→23:57)
[2020-08-31] MEDS: LEVOFLOXACIN 500 MG/D5W 100 ML 100 ML IV SCH (10:23)
[2020-08-31] MEDS: FAMOTIDINE 20MG TAB 20 MG TAB PO SCH ×2 (10:27→23:55)
[2020-08-31] MEDS: ATORVASTATIN CALCIUM 40 MG TABLET PO SCH (10:28)
[2020-08-31] MEDS: ISOSORBIDE MONO 30MG TAB SR PO SCH (10:29)
[2020-08-31] MEDS: FUROSEMIDE 40 MG TABLET PO SCH (10:29)
[2020-08-31] MEDS: ASPIRIN 81 MG EC TAB PO SCH (10:29)
[2020-08-31] MEDS: HYDRALAZINE HCL 10 MG TABLET PO SCH ×3 (10:30→23:57)
[2020-08-31] MEDS: HEPARIN SODIUM 5000UNIT/ML 1ML VIAL SQ SCH (10:42)
[2020-08-31] MEDS: MIRTAZAPINE 15 MG TABLET PO SCH (23:55)
[2020-09-01] MEDS: HEPARIN SODIUM 5000UNIT/ML 1ML VIAL SQ SCH ×3 (00:01→21:49)
[2020-09-01] MEDS: IPRATROPIUM/ALBUTEROL SULFATE 3 ML SOLUTION IH SCH ×4 (00:06→18:31)
[2020-09-01 04:22] VITALS: BP 140/58
[2020-09-01 05:26] LABS: CREATININE 1.9 mg/dL (0.5-1.5)
[2020-09-01] MEDS: INSULIN HUMULIN R 100 UNIT/ML 3ML SQ SCH ×5 (07:00→21:49)
[2020-09-01] MEDS: POTASSIUM CHLORIDE 20 MEQ ERTAB PO PRN (07:01)
[2020-09-01 08:00] VITALS: BP 117/69
[2020-09-01] MEDS: FUROSEMIDE 40 MG TABLET PO SCH ×2 (09:00→09:12)
[2020-09-01] MEDS: LEVOFLOXACIN 500 MG/D5W 100 ML 100 ML IV SCH (09:09)
[2020-09-01] MEDS: CARVEDILOL 6.25 MG TABLET PO SCH ×2 (09:11→21:44)
[2020-09-01] MEDS: HYDRALAZINE HCL 10 MG TABLET PO SCH ×2 (09:12→14:00)
[2020-09-01] MEDS: ISOSORBIDE MONO 30MG TAB SR PO SCH (09:12)
[2020-09-01] MEDS: FAMOTIDINE 20MG TAB 20 MG TAB PO SCH ×2 (09:12→21:50)
[2020-09-01] MEDS: ASPIRIN 81 MG EC TAB PO SCH (09:12)
[2020-09-01] MEDS: ATORVASTATIN CALCIUM 40 MG TABLET PO SCH (09:12)
[2020-09-01 11:31] VITALS: BP 110/49
[2020-09-01 15:44] VITALS: BP 117/58
[2020-09-01 19:58] VITALS: BP 111/53
[2020-09-01] MEDS ORDERED: TICAGRELOR 90 MG TABLET PO SCH (21:30)
[2020-09-01] MEDS: MIRTAZAPINE 15 MG TABLET PO SCH (21:44)
[2020-09-01 23:48] VITALS: BP 115/49
[2020-09-02] MEDS: IPRATROPIUM/ALBUTEROL SULFATE 3 ML SOLUTION IH SCH ×3 (00:06→10:43)
[2020-09-02 03:44] VITALS: BP 121/44
[2020-09-02 05:32] LABS: POTASSIUM 3.1 mmol/L (3.5-5.1)
[2020-09-02] MEDS: INSULIN HUMULIN R 100 UNIT/ML 3ML SQ SCH ×3 (07:09→17:34)
[2020-09-02] MEDS ORDERED: FUROSEMIDE 40 MG TABLET PO SCH (07:30)
[2020-09-02 08:51] VITALS: BP 125/59
[2020-09-02] MEDS ORDERED: LISINOPRIL 10 MG TABLET PO SCH (09:00)
[2020-09-02] MEDS ORDERED: TICAGRELOR 90 MG TABLET PO SCH (09:00)
[2020-09-02] MEDS: LEVOFLOXACIN 500 MG/D5W 100 ML 100 ML IV SCH (09:06)
[2020-09-02] MEDS: ASPIRIN 81 MG EC TAB PO SCH (09:20)
[2020-09-02] MEDS: FAMOTIDINE 20MG TAB 20 MG TAB PO SCH (09:20)
[2020-09-02] MEDS: ATORVASTATIN CALCIUM 40 MG TABLET PO SCH (09:21)
[2020-09-02] MEDS: ISOSORBIDE MONO 30MG TAB SR PO SCH (09:22)
[2020-09-02] MEDS: CARVEDILOL 6.25 MG TABLET PO SCH (09:29)
[2020-09-02] MEDS: HEPARIN SODIUM 5000UNIT/ML 1ML VIAL SQ SCH (09:37)
[2020-09-02] MEDS ORDERED: CARV6.2579 PO (11:11)
[2020-09-02] MEDS ORDERED: TICA90TA PO (11:11)
[2020-09-02] MEDS ORDERED: Isosorbide Mono 30MG Tab Sr PO (11:11)
[2020-09-02] MEDS ORDERED: ATOR40TA69 PO (11:11)
[2020-09-02] MEDS ORDERED: FURO40TA7 PO (11:11)
[2020-09-02] MEDS ORDERED: LISI10TA7 PO (11:11)
[2020-09-02] MEDS ORDERED: AEC81 PO (11:11)
[2020-09-02 12:16] VITALS: BP 108/54
[2020-09-02] MEDS ORDERED: LINA5TAB PO (13:21)
[2020-09-02] MEDS ORDERED: BALSAM PERU/CASTOR OIL 60 GM TUBE TP SCH (14:00)
[2020-09-02 17:01] VITALS: BP 100/55
== END 2020-09-02 18:45 | disposition home health service (06) | DRG 280 ==
LOC: EDH 16:19 → EDHIP 20:10 → 4BH 08-27 01:00
PROVIDERS: ADMIT Internal Medicine; ATTEND Internal Medicine
PROC: 5A09357 Assistance with Respiratory Ventilation, Less than 24 Consecutive Hours, Continuous Positive Airway Pressure (ICD-10-PCS; principal; 2020-08-27)
DX: I21.4 Non-ST elevation (NSTEMI) myocardial infarction (principal); I50.43 Acute on chronic combined systolic (congestive) and diastolic (congestive) heart failure; E43 Unspecified severe protein-calorie malnutrition; J80 Acute respiratory distress syndrome; N39.0 Urinary tract infection, site not specified; N17.9 Acute kidney failure, unspecified; I13.0 Hypertensive heart and chronic kidney disease with heart failure and stage 1 through stage 4 chronic kidney disease, or unspecified chronic kidney disease; J98.11 Atelectasis; Z68.1 Body mass index [BMI] 19.9 or less, adult; N18.30 Chronic kidney disease, stage 3 unspecified; I25.5 Ischemic cardiomyopathy; E11.40 Type 2 diabetes mellitus with diabetic neuropathy, unspecified; Z66 Do not resuscitate; E03.9 Hypothyroidism, unspecified; I25.10 Atherosclerotic heart disease of native coronary artery without angina pectoris; F03.90 Unspecified dementia, unspecified severity, without behavioral disturbance, psychotic disturbance, mood disturbance, and anxiety; F41.9 Anxiety disorder, unspecified; E78.5 Hyperlipidemia, unspecified; E11.21 Type 2 diabetes mellitus with diabetic nephropathy; E11.51 Type 2 diabetes mellitus with diabetic peripheral angiopathy without gangrene; D64.9 Anemia, unspecified; I34.0 Nonrheumatic mitral (valve) insufficiency; E11.22 Type 2 diabetes mellitus with diabetic chronic kidney disease; J44.9 Chronic obstructive pulmonary disease, unspecified; R79.1 Abnormal coagulation profile; D47.3 Essential (hemorrhagic) thrombocythemia; Z20.828 Contact with and (suspected) exposure to other viral communicable diseases; E11.65 Type 2 diabetes mellitus with hyperglycemia; Z86.73 Personal history of transient ischemic attack (TIA), and cerebral infarction without residual deficits; Z82.5 Family history of asthma and other chronic lower respiratory diseases; Z82.49 Family history of ischemic heart disease and other diseases of the circulatory system; Z89.611 Acquired absence of right leg above knee; Z89.612 Acquired absence of left leg above knee; Z87.891 Personal history of nicotine dependence; Z88.8 Allergy status to other drugs, medicaments and biological substances; Z79.899 Other long term (current) drug therapy; Z79.82 Long term (current) use of aspirin; Z79.84 Long term (current) use of oral hypoglycemic drugs
CPT/HCPCS: 36415; 36600; 71045; 71250; 80048; 80053; 80061; 81001; 82270; 82550; 82728; 82803; 82948; 83036; 83540; 83550; 83605; 83735; 83874; 83880; 84132; 84145; 84484; 85025; 85378; 85610; 85730; 86140; 86850; 86900; 86901; 87040; 87088; 87426; 92610; 93005; 93306; 93356; 94640; 94660; 94664; 99291; G0378; J0696; J1644; J1650; J1815; J1940; J1956; J2930; J3475; J3490; U0003